=== PATIENT | male | born 1995 | race Two or more races ===

== ENCOUNTER 2021-09-17 17:56 | Emergency (ER) | payer MEDICAID ==
[~2021-09-17] VITALS: Ht 185.4 cm; Wt 120.2 kg
--- NOTE | 2021-09-17 18:01 | NUR ---
TO ER BED 4. BIB RA 40 C/O ALLERGIC REACTION AT THE GYM, 0.5 MG EPI IM AND 50 MG BENADRYL IV GIVEN BY PARAMEDICS. PT CONNECTED TO MONITOR. NOT IN RESPIRATORY DISTRESS. AWAITING MD STARR.
--- NOTE | 2021-09-17 18:10 | NUR ---
IV LINE ESTABLISHED BY PARAMEDICS. LAC 20G. LINE SECURED.
[2021-09-17] MEDS ORDERED: methylPREDNISolone SOD SUCC 125 MG/2ML VIAL ONE (18:20)
[2021-09-17] MEDS ORDERED: FAMOTIDINE/PF INJ 20 MG/2 ML VIAL IV ONE ×2 (18:20→18:30)
[2021-09-17] MEDS ORDERED: methylPREDNISolone SOD SUCC 125 MG/2ML VIAL IV ONE (18:30)
[2021-09-17] MEDS ORDERED: FAMO-131 PO (18:34)
[2021-09-17] MEDS ORDERED: EPIN0.1517 IM (18:34)
[2021-09-17] MEDS ORDERED: DIPH25CA83 PO (18:34)
[2021-09-17] MEDS ORDERED: PRED50TA PO (18:34)
--- NOTE | 2021-09-17 19:06 | NUR ---
IV removed. Catheter intact and site benign. Pressure and 4x4 applied to site. No bleeding noted.
[2021-09-17 19:07] VITALS: BP 139/99
--- NOTE | 2021-09-17 19:07 | NUR ---
Patient discharged to home in stable condition. Written and verbal after care instructions given. Patient verbalizes understanding of instruction.
== END 2021-09-17 19:09 | disposition home or self-care (01) ==
LOC: ER 18:16
DX: T78.40XA Allergy, unspecified, initial encounter (principal); Z91.013 Allergy to seafood; Z79.899 Other long term (current) drug therapy; X58.XXXA Exposure to other specified factors, initial encounter
CPT/HCPCS: 96374; 96375; 99284; J2930; J3490